=== PATIENT | male | born 1950 | race Caucasian/White ===

== ENCOUNTER 2021-03-02 15:57 | Observation (INO) ==
[2021-03-02] MEDS ORDERED: Acetaminophen 325 MG TABLET PO ONE (19:43)
[2021-03-02] MEDS ORDERED: Dextrose Gel 15 GM/37.5 ML TUBE PO PRN ×2 (20:21)
[2021-03-02] MEDS ORDERED: *HR* Dextrose 50 % in Water (Syg) 50 ML SYRINGE IVP PRN (20:21)
[2021-03-02] MEDS ORDERED: D5% in Water 1,000 ML IVC PRN (20:21)
[2021-03-02] MEDS ORDERED: Perflutren Lipid Microsphere 1.3 ML in 0.9 % Sodium Chloride 8.7 ML IVP PRN (20:24)
[2021-03-02] MEDS ORDERED: Naloxone 0.4 MG/ML INJ IVP PRN (20:25)
[2021-03-02] MEDS ORDERED: Ondansetron 4 MG/2 ML VIAL IVP PRN (20:25)
[2021-03-02 20:30] LABS: Basophils % 0.2 %; Hematocrit 38.1 % (37.5-50.1); Hemoglobin 13.6 g/dL (12.9-16.9); Immature Granulocytes % 0.2 % (0-4); Lymphocytes # 0.9 K/mcL (0.6-4.6); Lymphocytes % 18.6 %; Mean Corpuscular HGB Conc 35.7 g/dL (31.6-35.5); Mean Corpuscular Hemoglobin 31.1 pg (28.0-33.3); Mean Platelet Volume 9.4 fL (9.4-12.4); Monocytes # 0.4 K/mcL (0.0-1.3); Monocytes % 8.9 %; Neutrophils # 3.5 K/mcL (1.6-8.9); Platelet Count 233 K/mcL (140-400); Red Blood Count 4.38 M/mcL (4.19-5.50); Red Cell Distribution Width 11.4 % (11.5-14.5); Segmented Neutrophils % 72.1 %; White Blood Count 4.8 K/mcL (4.3-11.1)
[2021-03-02] MEDS ORDERED: tiZANidine 4 MG TABLET PO ONE (20:32)
[2021-03-02 20:33] LABS: Estimated Average Glucose 209 mg/dl; Hemoglobin A1C 8.9 %
[2021-03-02 20:40] LABS: INR 1.2; Prothrombin Time 13.1 Seconds (9.4-12.1)
[2021-03-02 20:42] LABS: Activated Partial Thrombo Time 31.3 Seconds (26.0-36.0)
[2021-03-02 20:58] LABS: Alanine Aminotransferase 13 Units/L (7-52); Albumin 3.9 g/dL (3.5-5.7); Albumin/Globulin Ratio 1.3 (1.1-2.2); Alkaline Phosphatase 52 Units/L (34-104); Aspartate Amino Transferase 19 Units/L (13-39); BUN/Creatinine Ratio 14 (6-26); Bilirubin,Direct 0.1 mg/dL (0.0-0.2); Bilirubin,Indirect 0.3 mg/dL (0.0-1.0); Bilirubin,Total 0.4 mg/dL (0.3-1.0); Blood Urea Nitrogen 8 mg/dL (8-23); C-Reactive Protein 68 mg/L (Less than 10); Calcium 8.7 mg/dL (8.6-10.3); Carbon Dioxide 21 mEq/L (23-29); Chloride 97 mEq/L (98-107); Globulin 2.9 g/dL (2.4-3.5); Glucose 184 mg/dL (70-105); Iron 21 mcg/dL (65-175); Magnesium 1.6 mg/dL (1.6-2.6); Osmolality,Calculated 275 (280-300); Potassium 3.4 mEq/L (3.5-5.1); Sodium 131 mEq/L (136-145); Total Protein 6.8 g/dL (6.4-8.9); Troponin I 0.08 ng/mL (< 0.04); eGFR For African Americans > 60 (> 60); eGFR For Non-African Americans > 60 (> 60)
[2021-03-02] MEDS ORDERED: Gabapentin 300 MG CAPSULE PO SCH (21:00)
[2021-03-02] MEDS ORDERED: Insulin LISPRO 300 UNITS/3 ML VIAL SUBQ SCH (21:00)
[2021-03-02] MEDS ORDERED: Nitroglycerin 0.4 MG TAB.SUBL SL PRN (21:08)
[2021-03-02] MEDS ORDERED: Morphine Sulfate 2 MG/ML SYRINGE IVP PRN (21:09)
[2021-03-02 21:15] LABS: Folate 21.7 ng/mL (3.0-16.0)
[2021-03-02 21:17] LABS: Ferritin 249 ng/mL (20-250)
[2021-03-02] MEDS ORDERED: Potassium Chloride Elixir 20 MEQ/15 ML UDC PO ONE (21:18)
[2021-03-02] MEDS ORDERED: *HR* Heparin 5,000 UNIT/ML VIAL IVP PRN ×2 (21:22)
[2021-03-02] MEDS ORDERED: Heparin 25,000UNIT/250ML 1/2NS 25,000 UNIT/250 ML IV.SOLN IVC SCH (21:30)
[2021-03-02] MEDS ORDERED: 0.9 % Sodium Chloride 1,000 ML IVC SCH (21:30)
[2021-03-02 21:38] LABS: Influenza A PCR Negative (Negative); Influenza B PCR Negative (Negative); Resp. Syncytial Virus PCR Negative (Negative)
[2021-03-02 21:51] LABS: SARS-CoV-2 by PCR (In House) Positive (Negative)
[2021-03-02] MEDS: *HR* OxyCODONE/APAP 10/325 TABLET PO PRN (22:39)
[2021-03-03] MEDS ORDERED: Acetaminophen 325 MG TABLET PO PRN ×2 (02:00→11:49)
[2021-03-03 06:10] LABS: Hematocrit 36.9 % (37.5-50.1); Hemoglobin 12.6 g/dL (12.9-16.9); Mean Corpuscular HGB Conc 34.1 g/dL (31.6-35.5); Mean Corpuscular Hemoglobin 30.2 pg (28.0-33.3); Mean Corpuscular Volume 88.5 fL (83.0-100.0); Mean Platelet Volume 9.5 fL (9.4-12.4); Platelet Count 239 K/mcL (140-400); Red Blood Count 4.17 M/mcL (4.19-5.50); Red Cell Distribution Width 11.7 % (11.5-14.5); White Blood Count 4.6 K/mcL (4.3-11.1)
[2021-03-03 06:19] LABS: BUN/Creatinine Ratio 15 (6-26); Blood Urea Nitrogen 10 mg/dL (8-23); Calcium 8.3 mg/dL (8.6-10.3); Carbon Dioxide 22 mEq/L (23-29); Chloride 103 mEq/L (98-107); Chol/HDL Ratio 3.1 (0-4.9); Cholesterol 116 mg/dL (< 200); Glucose 196 mg/dL (70-105); HDL Cholesterol 38 mg/dL (40-59); LDL Cholesterol,Calculated 55 mg/dL (< 100); Osmolality,Calculated 284 (280-300); Potassium 4.2 mEq/L (3.5-5.1); Sodium 135 mEq/L (136-145); Triglycerides 114 mg/dL (< 150); eGFR For African Americans > 60 (> 60); eGFR For Non-African Americans > 60 (> 60)
[2021-03-03 06:30] LABS: Heparin anti-factor XA UFH 0.36 IU/mL (0.30-0.70)
[2021-03-03 06:37] LABS: Activated Partial Thrombo Time 50.7 Seconds (26.0-36.0)
[2021-03-03] MEDS: Insulin LISPRO 300 UNITS/3 ML VIAL SUBQ SCH ×3 (08:43→17:49)
[2021-03-03] MEDS ORDERED: Aspirin Enteric Coated 81 MG Tablet PO SCH (09:00)
[2021-03-03] MEDS: *HR* OxyCODONE/APAP 10/325 TABLET PO PRN (10:51)
[2021-03-03] MEDS ORDERED: Ondansetron 4 MG/2 ML VIAL IVP PRN (11:49)
[2021-03-03] MEDS ORDERED: EPINEPHrine 1 MG/ML VIAL IM PRN (11:49)
[2021-03-03] MEDS ORDERED: methylPREDNISolone 125 MG/2 ML VIAL IVP PRN (11:49)
[2021-03-03] MEDS ORDERED: ETESEVIMAB IVPB ONE (12:00)
[2021-03-03] MEDS ORDERED: BAMLANIVIMAB 700 MG IVPB ONE (12:00)
[2021-03-03] MEDS ORDERED: SODIUM CHLORIDE 0.9% IVPB ONE (12:00)
[2021-03-03 12:15] VITALS: O2SAT 95
[2021-03-03 17:04] VITALS: BP 187/94; PULSE 82; TEMP 98.9
[2021-03-06 21:34] LABS: % Iron Saturation 7 % (20-55); Transferrin 224 mg/dL (203-362)
== END 2021-03-03 19:40 | disposition left against medical advice (07) ==
LOC: 3BNU → SUATTDRO 18:42
PROVIDERS: ADMIT Family Medicine; ATTEND Internal Medicine